=== PATIENT | male | born 1985 | race Caucasian/White ===

== ENCOUNTER 2019-12-24 08:14 | Outpatient (REF) | payer OTHER, SELFPAY ==
[2019-12-24 21:27] LABS: Anion Gap 5.4 mmol/L (3-11); BUN 13 mg/dL (7-18); CO2 28.6 mmol/L (21.0-32.0); CREATININE 0.93 mg/dL (0.70-1.30); Calcium 9.3 mg/dL (8.5-10.1); Calculated LDL 177 mg/dL (<100); Chloride 101 mmol/L (98-107); Cholesterol 252 mg/dL (<200); Glucose 97 mg/dL (74-106); HDL Cholesterol 45 mg/dL (40-60); Potassium 4.8 mmol/L (3.5-5.1); Sodium 135 mmol/L (136-145); Triglyceride 151 mg/dL (<150)
== END 2019-12-24 08:34 ==
LOC: NCHCN 08:14
PROVIDERS: PCP Internal Medicine; Visit Provider Internal Medicine
DX: R03.0 Elevated blood-pressure reading, without diagnosis of hypertension (principal); E66.3 Overweight
CPT/HCPCS: 80048; 80061

== ENCOUNTER 2021-11-11 15:08 | Outpatient (REF) | payer OTHER, SELFPAY ==
[2021-11-11 20:40] LABS: ALT 45 U/L (16-63); AST 20 U/L (15-37); Albumin 4.3 g/dL (3.4-5.0); Alkaline Phosphatase 66 U/L (46-116); Anion Gap 11.6 mmol/L (3-11); BUN 24 mg/dL (7-18); Bilirubin, Total 0.3 mg/dL (0.2-1.0); CO2 23.4 mmol/L (21.0-32.0); CREATININE 1.3 mg/dL (0.70-1.30); Calcium 9.1 mg/dL (8.5-10.1); Calculated LDL 183 mg/dL (<100); Chloride 105 mmol/L (98-107); Cholesterol 266 mg/dL (<200); Glucose 114 mg/dL (74-106); HDL Cholesterol 49 mg/dL (40-60); Potassium 4.1 mmol/L (3.5-5.1); Sodium 140 mmol/L (136-145); Total Protein 7.7 g/dL (6.4-8.2); Triglyceride 170 mg/dL (<150)
== END 2021-11-11 15:09 | disposition home or self-care (01) ==
LOC: NCHCN 15:08
PROVIDERS: PCP Internal Medicine; Visit Provider Registered Nurse
DX: E78.5 Hyperlipidemia, unspecified (principal); R03.0 Elevated blood-pressure reading, without diagnosis of hypertension; E66.3 Overweight
CPT/HCPCS: 80053; 80061

== ENCOUNTER 2023-04-19 16:19 | Outpatient (REF) | payer BC, SELFPAY ==
[2023-04-19 16:06] LABS: ALT 27 U/L (16-63); AST 25 U/L (15-37); Albumin 4.4 g/dL (3.4-5.0); Alkaline Phosphatase 69 U/L (46-116); Anion Gap 6.7 mmol/L (3-11); BUN 15 mg/dL (7-18); Bilirubin, Total 0.7 mg/dL (0.2-1.0); CO2 27.3 mmol/L (21.0-32.0); Calcium 9.6 mg/dL (8.5-10.1); Calculated LDL 162 mg/dL (<100); Chloride 102 mmol/L (98-107); Cholesterol 236 mg/dL (<200); Estimated GFR 100.66 (mL/min/1.73m2); Glucose 108 mg/dL (74-106); HDL Cholesterol 61 mg/dL (40-60); Potassium 4.5 mmol/L (3.5-5.1); Sodium 136 mmol/L (136-145); Triglyceride 65 mg/dL (<150)
== END 2023-04-19 16:20 | disposition home or self-care (01) ==
LOC: NCHCN 16:19
PROVIDERS: PCP Internal Medicine; Visit Provider Internal Medicine
DX: E78.5 Hyperlipidemia, unspecified (principal)
CPT/HCPCS: 80053; 80061

== ENCOUNTER 2023-11-19 17:24 | Emergency (ER) | payer BC, SELFPAY ==
[2023-11-19 17:27] VITALS: BP 161/99; PULSE 111; TEMP 37.1; O2SAT 98
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
[2023-11-19] MEDS: EPINEPHrine 0.3 MG KIT IM (17:47)
[2023-11-19] MEDS: Dexamethasone 10 MG/ML VIAL IVP (17:56)
[2023-11-19] MEDS: Famotidine 20 MG/2 ML VIAL IVP (17:59)
[2023-11-19] MEDS: Normal Saline 1,000 ML 1000 ML IV (18:02)
[2023-11-19 18:04] LABS: Abs Immature Grans 0.04 10^3/uL (0.0-0.06); Absolute Basophil Count 0.03 10^3/uL (0.0-0.2); Absolute Eosinophil Count 0.15 10^3/uL (0.0-0.7); Absolute Lymphocyte Count 1.94 10^3/uL (1.2-3.4); Absolute Monocyte Count 0.87 10^3/uL (0.1-0.8); Absolute Neutrophil Count 7.18 10^3/uL (1.2-6.7); Basophils % 0.3 %; Eosinophils % 1.5 %; HCT 43.3 % (40.0-50.0); Immature Grans % 0.4 %; MCH 31.3 pg (27.0-33.0); MCHC 34.6 % (32.0-36.0); MCV 90 fL (80-95); MPV 9.7 fL (8.0-11.0); Monocytes % 8.5 %; Neutrophils % 70.3 %; Platelet Count 243 10^3/uL (130-400); RBC 4.79 10^6/uL (4.36-5.78); RDW 13.2 % (11.8-14.1); RDW-SD 44.4 fL; WBC 10.21 10^3/uL (4.4-10.8)
[2023-11-19 18:24] LABS: ALT 24 U/L (16-63); AST 12 U/L (15-37); Alkaline Phosphatase 71 U/L (46-116); Anion Gap 9.3 mmol/L (3-11); BUN 14 mg/dL (7-18); Bilirubin, Total 0.32 mg/dL (0.2-1.0); CO2 27.7 mmol/L (21.0-32.0); CREATININE 1.2 mg/dL (0.70-1.30); Calcium 8.8 mg/dL (8.5-10.1); Chloride 101 mmol/L (98-107); Estimated GFR 80.88 (mL/min/1.73m2); Glucose 103 mg/dL (74-106); Potassium 3.2 mmol/L (3.5-5.1); Sodium 138 mmol/L (136-145); Total Protein 7.4 g/dL (6.4-8.2)
[2023-11-19 18:29] VITALS: BP 162/88; PULSE 105
[2023-11-19 18:33] VITALS: BP 162/88; PULSE 108; TEMP 36.2; O2SAT 96
[2023-11-19 19:40] VITALS: BP 143/84; PULSE 97; RESP 18; O2SAT 96
[2023-11-19 20:40] VITALS: BP 154/93; PULSE 85; RESP 14; O2SAT 97
== END 2023-11-19 20:40 | disposition home or self-care (01) ==
PROVIDERS: Emergency Provider Emergency Medicine; PCP Internal Medicine
DX: T63.461A Toxic effect of venom of wasps, accidental (unintentional), initial encounter (principal); T78.2XXA Anaphylactic shock, unspecified, initial encounter; R00.0 Tachycardia, unspecified; Y92.89 Other specified places as the place of occurrence of the external cause
CPT/HCPCS: 36415; 80053; 96361; 96372; 96374; 96375; 99284; 85025; 99283; J0171; J1100

== ENCOUNTER 2024-03-09 10:57 | Emergency (ER) | payer BC, SELFPAY ==
[2024-03-09 10:58] VITALS: BP 147/91; PULSE 69; RESP 18; TEMP 36.3; O2SAT 98
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
--- OUTSIDE RECORDS SUMMARY | 2024-03-09 11:01 | XMS_ITS | Encounter Summary ---
Author Organization [facility] Address [address] [place] [address] Care Team Providers Care Airplane Tester Name Role Phone Alexey Quezada MD Primary Care Provider Unav ailable Reason for Visit * Reason Comments Dizziness C/o dizziness starti ng this AM, worse with position changes, received 1000 mls of NS by EMS, ambulatory to upon arrival with minimal issues Encounter Details Date Type Department Care Team (Late st Contact Info) Description 10/10/2023 10:25 EDT - 10/10/2023 14:04 EDT Emergency [facility] Emergency Department [address] [place] [address] Viktor Leon MD [address] [place] [address] Postural dizziness with presyncope (Primary Dx) Discharge Disposition: Home or Self Care Social History Tobacco Use Types Packs/Day Years Used Date Smoking Tobacco: Every Day Cigarettes Alcohol Use Standard Drinks/Week Comments Yes 0 (1 standard drink = 0.6 oz pur e alcohol) social Sex and Gender Information Value Date Recorded Sex Assigned at Not on file Legal Sex Male 18:45 EST Gender Identity Not on file Sexual Orientation Not on file documented as of this encounter Last Filed Vital Signs Vital Sign Reading Time Taken Comments Blood Pressure 152/92 10/10/2023 1033 EDT Pulse 78 10/10/2023 1047 EDT Temperature 36.6 ??C (97.8 ??F) 10/10/2023 1051 EDT Respiratory Rate 16 10/10/2023 1035 EDT Oxygen Saturation 99% 10/10/2023 1035 EDT Inhaled Oxygen Concentration - - Weight - - Height - - Body Mass Index - - documented in this encounter Functional Status * Are you deaf or do you have serious difficulty hearing? Answer Date of Assessment Author No 10/10/2023 11:16 EDT Rodrigo Gomez RN documented as of this encounter Discharge Instructions * Discharge Instructions* Jhonatan Alicea PA-C - 10/10/2023 13:46 EDT You were seen today for dizzy spell. Your exam and lab work were quite reassuring. I suspect this is a combination of lack of food, lack of sleep, and dehydration. Get plenty of rest, drink plenty of fluids, and eat plenty of healthy food. Follow-up with your PCP at your scheduled appointment tomorrow. Return to the ED for new or worsening symptoms. documented in this encounter Medications at Time of Discharge oxycodone-acetami nophen (PERCOCET) 5-325 mg per tablet Take 1 Tab by mouth every 4 hours as needed for Pain. documented as of this encounter Discharge Disposition Disposition Code Departure Means Destination Comment s Home or Self Assisted documented in this encounter ED Notes * Jhonatan Alicea PA-C - 10/10/2023 1024 EDT Emergency Department Visit Medical Decision Making 37-year-old male presents with EMS for evaluation of dizziness. States he was at a store, feeling well when he relatively suddenly became dizzy, feeling that he was going to pass out. He laid down onthe ground and this resolved spontaneously. He he got up, began walking and had another similar episode. EMS was called and he felt dizzy with palpitations while in the ambulance, they report that his heart rate stayed unchanged on the monitor during this episode. States he feels quite fatigued andtired. Also states that his daughter did not sleep well last night, he has not eaten anything today, and had 6 or 7 beers last night. He has an appointment scheduled with his PCP tomorrow. He received 1 L IV fluids with EMS. On exam he is in no acute distress with stable vitals. Lungs are clear. Abdomen soft nontender. Neurologic exam is nonfocal. Labs reassuring, unremarkable metabolic panel, normal CBC. Urine dip unremarkable. EKG sinus rhythm, rate 66, normal axis, normal intervals, no acute ischemic changes. Low suspicion for new diagnosis diabetes. Suspicion for arrhythmia, CAD, PE, Wells and PERC are negative. Suspicion for UTI or electrolyte abnormality. Stable for discharge home. Instructed him to follow-up with his scheduled PCP appointment tomorrow.Return precautions reviewed. Case discussed with and patient seen by Dr. eLon, who was in agreement with assessment and plan. Relevant Data as of 10/10/23 1355 Tue Oct 10, 2023 1349 Sodium: 138 [MS] 1349 Potassium: 4.5 [MS] 1349 Chloride: 102 [MS] 1349 CO2: 24 [MS] 1349 Anion Gap: 12 [MS] Relevant Data User Index [MS] Jhonatan Alicea PA-C EKG (independent interpretation): sinus rhythm, rate 66, normal axis, normal intervals, no acute ischemic changes. Medical Decision Making Amount and/or Complexity of Data Reviewed Labs: ordered. Final diagnoses: Postural dizziness with presyncope Disposition: Discharged Chief complaint: Dizziness HPI Yashira Teran is a 37 y.o. male who presents to the ED for a relatively sudden onset of dizziness this morning where he was experiencing heavy limbs while at grocery store. Improved when layingsupine and denies any associated LOC. He then had another episode where he felt dizzy at the store and it occurred once more while in the ambulance. He states he feels like I've taken a 3 hour exam,I feel tired. Also had some associated nausea with the episodes. He has been urinating more frequently in the past month. He drinks 4-5 beers daily and smokes cigarettes. He denies numbness or tingling in the upper or lower extremities, chest pain or pressure, headache, vision changes, abdominal pain, SOB Denies numbness or tingling, WALTER, vision changes, abdominal pain, diarrhea, chest pain or pressure, SOB, cough, runny nose, History was provided by: Patient Records reviewed include: None Patient's pertinent PMH, FH, SH were reviewed and edited as necessary. Nursing notes reviewed. A medical screening exam was performed. Physical Exam BP (!) 152/92 Pulse 78 Temp 36.6 ??C (97.8 ??F) (Oral) Resp 16 SpO2 99% Physical Exam Vitals and nursing note reviewed. Constitutional: General: He is not in acute distress. Appearance: Normal appearance. HENT: Head: Normocephalic and atraumatic. Right Ear: External ear normal. Left Ear: External ear normal. Nose: Nose normal. Mouth/Throat: Mouth: Mucous membranes are moist. Eyes: Extraocular Movements: Extraocular movements intact. Conjunctiva/sclera: Conjunctivae normal. Pupils: Pupils are equal, round, and reactive to light. Cardiovascular: Rate and Rhythm: Normal rate and regular rhythm. Heart sounds: Normal heart sounds. Pulmonary: Effort: Pulmonary effort is normal. Breath sounds: Normal breath sounds. Abdominal: General: Bowel sounds are normal. Palpations: Abdomen is soft. There is no mass. Tenderness: There is no abdominal tenderness. Musculoskeletal: General: No swelling or deformity. Normal range of motion. Cervical back: Normal range of motion and neck supple. Skin: General: Skin is warm and dry. Neurological: General: No focal deficit present. Mental Status: He is alert and oriented to person, place, and time. Cranial Nerves: Cranial nerves 2-12 are intact. No cranial nerve deficit, dysarthria or facial asymmetry. Motor: No weakness, tremor or pronator drift. Coordination: Coordination normal. Hhcqfc-Dumy-Vsobld Test and Heel to Mckeon Test normal. Rapid alternating movements normal. Gait: Gait normal. Comments: No nystagmus Psychiatric: Mood and Affect: Mood normal. Behavior: Behavior normal. Procedures Procedures * Viktor Leon MD - 10/10/2023 1024 EDT I reviewed this case with the Advanced Practice Provider. I personally made/approved the managementplan for this patient and take responsibility for the patient management. I evaluated this patient [id number] and provided a substantive portion of the patient's care. My personal evaluation included a face to face history and physical exam, review of vital signs, and review of diagnostic data. Based on all of these elements I formulated, and/or participated substantively in the medical decision making, including assessing the level of risk of the patient's complaints and condition, establishing a diagnosis and/or selecting management options. Previously healthy 37-year-old male presenting with dizziness/lightheaded sensation of feeling thathe was get a pass out this happened twice this morning. Patient cannot think of any specific triggers. Does note that he did not sleep all that well last night as his daughter was up several times with a cold. Several other family members with recent cough. Patient does drink 6 or 7 beers most nights and did so last evening. He also smokes cigarettes. No other illicit drug use. No recent head trauma. He denies any spinning vertigo. No tinnitus. No visual changes. No chest pain. He did have a sensation of palpitations like his heart was racing while hewas in the ambulance however EMS reports that he maintained a normal heart rate and rhythm on the monitor while this was going on. 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 He denies any significant occupational exposures recently. Patient is feeling much better after some IV fluids. Labs are unremarkable. EKG is unremarkable. Plan for discharge home and follow-up with the PCP for any ongoing symptoms and return to the ER for worsening. EKG (independent interpretation): Normal sinus rhythm with a rate of 66. Normal axis and intervals.Septal Q waves are present. No acute ischemia. Final diagnoses: Postural dizziness with presyncope documented in this encounter Plan of Treatment Not on file documented as of this encounter Procedures Procedure Name Priority Date/Time Associated Diagnosis Comments POCT URINE DIPSTICK, VISUAL READ STAT 10/10/2023 12:26 EDT ECG REPORT - SCANNED 10/10/2023 12:12 EDT HOLD GREEN TOP Routine 10/10/2023 10:50 EDT COMPLETE BLOOD COUNT AND DIFFERENTIAL STAT 10/10/2023 10:47 EDT HEMOGLOBIN A1C Add-On 10/10/2023 10:47 EDT COMPREHENSIVE METABOLIC PANEL (CMP) STAT 10/10/2023 10:47 EDT EKG 12-LEAD STAT 10/10/2023 10:32 EDT documented in this encounter Results * POCT URINE DIPSTICK, VISUAL READ (10/10/2023 12:26 EDT) Color, UA Yellow Yellow, Colorless Clarity, UA Clear Clear Glucose, UA Negative Negative mg/dL Bilirubin, UA Negative Negative Ketones, UA Negative Negative mg/dL Spec Grav, UA 1.010 1.001 - 1.030 Blood, UA Negative Negative pH, UA 7.5 <=8.5 Protein, UA Negative Negative mg/dL Urobilinogen, UA 0.2 0.2 - 1.0 E.U./dL Nitrite, UA Negative Negative Leuk Esterase Negative Negative Comment Urine URINE SPECIMEN OBTAINED BY CLEAN CATCH PROCEDURE / Unknown 10/10/2023 12:26 EDT us Jhonatan Alicea PA-C POINT OF CARE TEST ORDERABLE S Final Result * ECG REPORT - SCANNED (10/10/2023 12:12 EDT) 10/10/2023 12:1 2 EDT us Scan 2 Mattress Stuffer PROCEDURE/MINOR SURGICAL OR DERABLES Final Result * HOLD GREEN TOP (10/10/2023 10:50 EDT) Hold Hold 10/10/2023 12:01 EDT [facility] Blood VENOUS BLOOD / Unknown Venipuncture / Unknown 10/10/2023 10:50 EDT 10/10/2023 10:59 EDT us Viktor Leon MD LAB INFO SERVICE AND SUPP ORT & PHONE RESULT Final Result [facility] [address] [place] [id number] * HEMOGLOBIN A1C (10/10/2023 10:47 EDT) Hemoglobin A1c 5.3 <5.7 % [facility]23 [facility] Comment: Glycemic Status References: Normal: ??<5.7% Pre-Diabetes: ??5.7% - 6.4% Diagnostic of Diabetes: ??> or = 6.5% (if confirmed) Est Avg Glucose 105 mg/dL 22:47 EDT [facility] Comment:The eAG represents t he A1c result expressed as average glucose in mg/dL. Blood VENOUS BLOOD / Unknown Venipuncture / Unknown 10/10/2023 10:47 EDT 10/10/2023 10:59 EDT Jhonatan Alicea PA-C CHEMISTRY & BLOOD GAS ORDERA BLES Final Result [facility] [address] [place] [address] * (ABNORMAL) COMPREHENSIVE METABOLIC PANEL (CMP) (10/10/2023 10:47 EDT) Sodium 138 136 - 145 mmol/L 10/10/2023 11:31 [facility] Potassium 4.5 3.5 - 5.0 mmol/L 10/10/2023 11:31 [facility] Chloride 102 96 - 110 mmol/L 10/10/2023 11:31 [facility] CO2 Total 24 22 - 32 mmol/L 10/10/2023 11:31 [facility] Glucose 108(H) 70 - 99 mg/dl 10/10/2023 11:31 [facility] BUN 15 10 - 26 mg/dL 10/10/2023 11:31 [facility] Creatinine 0.78 0.66 - 1.25 mg/dL 10/10/2023 11:31 [facility] eGFR 119 >60 mL/min/1.7 3m2 10/10/2023 11:31 [facility] Total Protein 8.4(H) 6.3 - 8.2 g/dL 10/10/2023 11:31 [facility] Albumin 5.1(H) 3.4 - 4.9 g/dL 10/10/2023 11:31 [facility] Alkaline Phosphatase 70 38 - 126 U/L 10/10/2023 11:31 [facility] AST 28 15 - 46 U/L 10/10/2023 11:31 [facility] ALT 26 <50 U/L 10/10/2023 11:31 [facility] Bilirubin, Total <0.5 <1.4 mg/dL 10/10/19 11:31 [facility] Calcium 9.9 8.5 - 10.5 mg/dL 10/10/2023 11:31 [facility] Albumin/Globulin Ratio 1.5 1.0 - 2.5 10/10/2023 11:31 [facility] Anion Gap 12 5 - 14 mmol/L 10/10/2023 11:31 [facility] Blood VENOUS BLOOD / Unknown Venipuncture / Unknown 10/10/2023 10:47 EDT 10/10/2023 10:59 EDT us Viktor Leon MD CHEMISTRY & BLOOD GAS ORD ERABLES Final Result [facility] [address] [place] [address] * COMPLETE BLOOD COUNT AND DIFFERENTIAL (10/10/2023 10:47 EDT) WBC 7.36 4.00 - 10.40 K/cmm 10/10/2023 11:05 [facility] RBC 5.27 4.36 - 5.78 M/cmm 10/10/2023 11:05 [facility] Hemoglobin 16.5 13.8 - 17.3 g/dL 10/10/2023 11:05 [facility] HCT 46.7 39.5 - 50.2 % 10/10/2023 11:05 [facility] MCV 89 81 - 95 fL 10/10/2023 11:05 [facility] MCH 31.3 27.6 - 33.0 pg 10/10/2023 11:05 [facility] MCHC 35.3 32.8 - 36.4 g/dL 10/10/2023 11:05 [facility] RDW-CV 13.8 <14.2 % 10/10/2023 11:05 [facility] RDW-SD 44.8 <46.0 fl 10/10/2023 11:05 [facility] PLT 285 141 - 377 K/cmm 10/10/2023 11:05 [facility] MPV 10.2 9.5 - 12.7 fL 10/10/2023 11:05 [facility] % Neutrophils 64.2 % 10/10/2023 11:05 [facility] % Lymphocytes 23.2 % 10/10/2023 11:05 [facility] % Monocytes 9.1 % 10/10/2023 11:05 [facility] % Eosinophils 2.3 % 10/10/2023 11:05 [facility] % Basophils 0.7 % 10/10/2023 11:05 [facility] % Immature Grans 0.5 <0.9 % 10/10/19 11:05 [facility] Absolute Neutrophils 4.72 2.20 - 8.85 K/cmm 10/10/2023 11:05 [facility] Absolute Lymphocytes 1.71 1.09 - 3.30 K/cmm 10/10/2023 11:05 [facility] Absolute Monocytes 0.67 0.10 - 0.80 K/cmm 10/10/2023 11:05 [facility] Absolute Eosinophils 0.17 0.03 - 0.61 K/cmm 10/10/2023 11:05 EDT [facility] ABS Basophils 0.05 0.01 - 0.11 K/cmm 10/10/2023 11:05 EDT [facility] Absolute Immature Grans 0.04 0.00 - 0.06 K/cmm 10/10/2023 11:05 EDT [facility] Type of Differential: Auto 10/10/2023 11:05 EDT [facility] Blood VENOUS BLOOD / Unknown Venipuncture / Unknown 10/10/2023 10:47 EDT 10/10/2023 10:59 EDT us Viktor Leon MD PACKAGES & DNA PROBE ORDE IRMA Final Result [facility] [address] [place] [address] * EKG 12-LEAD (10/10/2023 10:32 EDT) 10/10/2023 10:3 2 EDT Narrative [facility] - 10/10/2023 12:04 EDT ? [facility] ? Test Date: ?2023-10-10 Pat Name: ? YASHIRA TERAN ?Department: ? Room: ? B05 Gender: ? Male ? Adobe Developer: ?? KE : ?1985 ? Requested By: DAVID Bell Order Number: [id number] ?Reading MD: ?? MICHAEL HENRÁNDEZ MD ? Measurements Intervals ?[place] ? Rate: ? 66 ? P: ?66 FL: ? 160 ?QRS: ?21 QRSD: ? 90 ? T: ?62 QT: ? 366 ? QTc: ?383 ? Interpretive Statements Normal sinus rhythm No previous ECG available for comparison I reviewed the tracing and have either agreed or edited the findings in this report. Electronically Signed On 10-10-2023 12:04:11 EDT by MICHAEL HERNÁNDEZ MD. Procedure Note Michael Hernández MD - 10/10/2023 [facility] Test Date: 2023-10-10 Pat Name: YASHIRA TERAN Department: Room: B05 Gender: Male Adobe Developer: RODRIGO : 1985 Requested By: DAVID Bell Order Number: [id number] Reading MD: MICHAEL HERNÁNDEZ MD Measurements Intervals [place] Rate: 66 P: 66 FL: 160 QRS: 21 QRSD: 90 T: 62 QT: 366 QTc: 383 Interpretive Statements Normal sinus rhythm No previous ECG available for comparison I reviewed the tracing and have either agreed or edited the findings inthis report. Electronically Signed On 10-10-2023 12:04:11 EDT by MICHAEL HARVEY. us Viktor Leon MD CARDIAC ECG ORDERABLES Fi nal Result [facility] documented in this encounter Visit Diagnoses Diagnosis Postural dizziness with presyncope- Primary documented in this encounter Care Teams Airplane Tester Relationship Specialty Start Date End Date Alexey Quezada MD PCP - General 10/07/08 documented as of this encounter
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
--- NOTE | 2024-03-09 11:15 | ED.GENADUL_ITS ---
Discharge Plan Disposition Patient Disposition: Home Condition: Stable Discharge Details Clinical Impression: Depression, Anxiety Primary Care Provider: Alexey Quezada ED Provider: Jhonatan Tolentino Home Meds and New Rx's Prescriptions: Continued epinephrine [EpiPen] 0.3 mg/0.3 mL auto-injector 0.3 mg IM ONCE Qty: 2 0RF Rx Instructions: as a single dose; may repeat once escitalopram oxalate 10 mg tablet 10 mg PO DAILY Patient Comments: new script, has not started yet lorazepam 1 mg tablet 1 mg PO BID PRN Discharge Instructions Additional Instructions: Follow-up with your primary care provider as well as [facility] human services Try to avoid drinking alcohol and if you do limited to 2 drinks per day If you feel more ill or have worsening thoughts of depression or self-harm return to the emergency department for reevaluation HPI General Mode of arrival: ambulatory . Date/Time Provider Initiated Documentation: 03/09/24 10:59 . Limitations to Documentation: no limitations . Information obtained by: patient . History of Present Illness 38 year old M presents to the emergency department with the chief complaint of anxiety/depression, described as moderate, Patient started experiencing this month(s) (2) and it has been constant. No relieving factors improve symptom(s), No exacerbating factors reported . Patient notes no other symptoms.. Patient did receive the following treatments prior to arrival, none Related Data Home Medications ?Medication ?Instructions ?Recorded ?Confirmed epinephrine 0.3 mg/0.3 mL 0.3 mg (0.3 mL) IM ONCE #2 ea 11/19/23 03/09/24 injection, auto-injector (EpiPen) escitalopram oxalate 10 mg tablet 10 mg PO DAILY 03/09/24 03/09/24 lorazepam 1 mg tablet 1 mg PO BID PRN 03/09/24 03/09/24 Previous Rx's ?Medication ?Instructions ?Recorded epinephrine 0.3 mg/0.3 mL 0.3 mg (0.3 mL) IM ONCE #2 ea 11/19/23 injection, auto-injector (EpiPen) Allergies Allergy/AdvReac Type Severity Reaction Status Date / Time No Known Allergies Allergy Verified 03/09/24 11:03 General Stated Complaint: PsychEval ADRIANNE: 2 Review of Systems All systems reviewed & are unremarkable except as noted in HPI and below Constitutional Constitutional: Denies chills, Denies fever(s) and Denies weakness Cardiovascular Cardiovascular: Denies chest pain and Denies dyspnea Respiratory Respiratory: Denies cough and Denies dyspnea Gastrointestinal Gastrointestinal: Denies abdominal pain, Denies nausea and Denies vomiting Integumentary/Breasts Skin/Breast: Denies rash Neurologic Neurologic: Denies weakness Psychiatric Psychiatric: Reports depression Exam Const General: no acute distress Orientation: alert HENMT Head: normal to inspection Ears: external ears normal General nose exam: external nose normal Mouth: moist mucous membranes Eyes General: appearance normal, both eyes and all related structures Neck Neck: normal visual inspection Resp Effort & Inspection: normal respiratory effort and able to speak in complete sentences Cardio Rate: regular rate Skin General skin exam: no rashes or lesions noted Neuro General: patient alert and patient oriented x3 Extrem General: normal to inspection Psych Appearance: well kempt Mental Status: mental status grossly normal Speech and Movement: speech and movement normal Attitude: cooperative Course Vital Signs Vital signs: Vital Signs Temperature 36.3 C L 03/09/24 10:58 Pulse 69 03/09/24 10:58 Respiratory Rate 18 03/09/24 10:58 Blood Pressure 147/91 H 03/09/24 10:58 Pulse Oximetry 98 03/09/24 10:58 Temperature 36.3 C L 03/09/24 10:58 Temperature Source Oral 03/09/24 10:58 Pulse 69 03/09/24 10:58 Respiratory Rate 18 03/09/24 10:58 Blood Pressure 147/91 H 03/09/24 10:58 Blood Pressure Position Sitting 03/09/24 10:58 Pulse Oximetry 98 03/09/24 10:58 Oxygen Delivery Method Room Air 03/09/24 10:58 Oxygen Flow Rate 0 03/09/24 10:58 Pain Level 0 03/09/24 10:58 Medical Decision Making 38-year-old male who denies any chronic medical problems comes in with 1 to 2 months of worsening anxiety and thoughts of self-harm. He has not acted on any thoughts of self-harm. He does note that he drinks 6-12 beers every night, denies any other drug use. He was put on Ativan as needed and also prescribed Lexapro yesterday but has not started the Lexapro yet. He is oriented x 4 on arrival with a normal gait. No deficits on neuroexam. No systemic symptoms such as fevers or chills. Suspect depression or anxiety, doubt underlying medical process but will check CBC CMP and TSH and also mental health evaluate. Patient screened by [facility] screener and will be safety planned home and have follow-up with the PCP as well as [facility]. Patient will return if he has any worsening symptoms and I advised that he would benefit from starting the Lexapro that was prescribed Differential Diagnosis Differential Diagnosis: Depression, anxiety Lab Data Lab results reviewed: Yes I reviewed the patient's lab results. Quality:SDOH Health Related Social Needs: No Data to Display REPLACED BY [facility] All Active Problems (Updated 03/09/24 @ 14:27 by Jhonatan Tolentino MD) Anxiety (Chronic) Depression (Chronic) Social History Smoking/Tobacco Use Status: Current every day Tobacco Type: cigarettes Smoking risk assessment performed?: Yes Alcohol Intake: current Alcohol Intake frequency: 3 or more drinks per day Alcohol type: beer Substance use type: does not use
[2024-03-09 11:25] LABS: Bilirubin Negative (Negative); Blood Negative (Negative); Clarity Sl Cloudy (Clear); Glucose Negative (Negative); Ketones Negative (Negative); Leukocyte Esterase Negative (Negative); Nitrite Negative (Negative); Urobilinogen 0.2 mg/dL (Up to 0.2); pH 7.5 (5-8)
[2024-03-09 11:36] LABS: Abs Immature Grans 0.03 10^3/uL (0.0-0.06); Absolute Basophil Count 0.04 10^3/uL (0.0-0.2); Absolute Eosinophil Count 0.06 10^3/uL (0.0-0.7); Absolute Lymphocyte Count 1.26 10^3/uL (1.2-3.4); Absolute Monocyte Count 0.44 10^3/uL (0.1-0.8); Absolute Neutrophil Count 5.57 10^3/uL (1.2-6.7); Basophils % 0.5 %; Eosinophils % 0.8 %; HCT 46.2 % (40.0-50.0); HGB 15.7 g/dL (13.5-17.5); Immature Grans % 0.4 %; MCH 31.1 pg (27.0-33.0); MCV 92 fL (80-95); MPV 9.7 fL (8.0-11.0); Monocytes % 5.9 %; Neutrophils % 75.4 %; Platelet Count 263 10^3/uL (130-400); RBC 5.05 10^6/uL (4.36-5.78); RDW 12.7 % (11.8-14.1); RDW-SD 42.8 fL
[2024-03-09 11:44] LABS: *AMPHETAMINES SCREEN URINE Negative (Negative); *BARBITURATES SCREEN URINE Negative (Negative); *BENZODIAZEPINES SCREEN URINE Negative (Negative); Cannabinoids THC Negative (Negative); Cocaine Screen,Urine Negative (Negative); METHADONE URINE SCREEN Negative (Negative); OPIATES URINE SCREEN Negative (Negative)
[2024-03-09 11:49] LABS: Tricyclic Antidepressants Negative (Negative)
[2024-03-09 12:01] LABS: ALT 33 U/L (16-63); AST 21 U/L (15-37); Albumin 4.6 g/dL (3.4-5.0); Alkaline Phosphatase 80 U/L (46-116); Anion Gap 10.4 mmol/L (3-11); BUN 14 mg/dL (7-18); Bilirubin, Total 0.62 mg/dL (0.2-1.0); CO2 25.6 mmol/L (21.0-32.0); Calcium 9.6 mg/dL (8.5-10.1); Chloride 102 mmol/L (98-107); Estimated GFR 100.03 (mL/min/1.73m2); Glucose 113 mg/dL (74-106); Potassium 4.3 mmol/L (3.5-5.1); Sodium 138 mmol/L (136-145); TSH (W/Ref FT4) 1.24 uIU/mL (0.36-3.74); Total Protein 8.4 g/dL (6.4-8.2)
[2024-03-09 12:05] LABS: ETHANOL BLOOD < 3.0 mg/dL (<10)
--- NOTE | 2024-03-09 14:43 | NUR.NOTE ---
Nursing Note: patient pleasant and corporative during entire visit to the ED today. Waited quietly for [facility] with in Zone B. DCed on a safety plan. Patient and family agree with plan of care
== END 2024-03-09 14:45 | disposition home or self-care (01) ==
PROVIDERS: Emergency Provider Emergency Medicine; PCP Internal Medicine
DX: F41.9 Anxiety disorder, unspecified (principal); F32.A Depression, unspecified; F17.200 Nicotine dependence, unspecified, uncomplicated
CPT/HCPCS: 80053; 80307; 99283; 80320; 81003; 84443; 85025

== ENCOUNTER 2025-02-24 13:28 | Outpatient (REF) | payer BC, SELFPAY ==
[2025-02-24 15:21] LABS: ALT 64 U/L (16-63); AST 33 U/L (15-37); Albumin 4.2 g/dL (3.4-5.0); Alkaline Phosphatase 90 U/L (46-116); Anion Gap 6.3 mmol/L (3-11); BUN 15 mg/dL (7-18); Bilirubin, Total 0.5 mg/dL (0.2-1.0); CO2 30.7 mmol/L (21.0-32.0); Calcium 9.4 mg/dL (8.5-10.1); Chloride 103 mmol/L (98-107); Cholesterol 238 mg/dL (<200); Glucose 93 mg/dL (74-106); HDL Cholesterol 41 mg/dL (>or=40); Potassium 5.0 mmol/L (3.5-5.1); Sodium 140 mmol/L (136-145); Total Protein 8.0 g/dL (6.4-8.2)
== END 2025-02-24 13:29 | disposition home or self-care (01) ==
LOC: NCHCN 13:28
PROVIDERS: PCP Internal Medicine; Visit Provider Internal Medicine
DX: E78.5 Hyperlipidemia, unspecified (principal)
CPT/HCPCS: 80053; 80061